=== PATIENT | male | born 1990 | race Caucasian/White ===

== ENCOUNTER 2016-11-20 16:13 | Emergency (ER) | payer OTHER ==
[~2016-11-20] VITALS: Ht 180.3 cm; Wt 72.6 kg
[2016-11-20 16:13] VITALS: BP 110/67
--- NOTE | 2016-11-20 17:25 | ED.ADGEN ---
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 Patient states he was at work and an made through milk-like substance on his face which was possibly mixed with urine or known nonbloody body fluid. The exposure occurred 2 hours or to ED arrival. Patient immediately washed his face and eyes with soap and water. Denies any contact with body other than face and eyes. Patient is here as per protocol for post exposure evaluation and testing. Review of Systems Review of Systems ROS as per HPI. Allergies Allergies Allergies Coded Allergies Type Severity Reaction Last Updated Verified No Known Drug Allergies 11/20/16 No Physical Exam Physical Exam Constitutional: Well developed, well nourished, no acute distress, non-toxic appearance. HENT: Normocephalic, atraumatic, bilateral external ears normal, oropharynx moist, no oral exudates, nose normal. Eyes: PERRLA, EOMI, conjunctiva normal. Neck: Normal range of motion, no tenderness. Cardiovascular:Heart rate regular rhythm, no murmur. Lungs & Thorax: Bilateral breath sounds clear to auscultation. Abdomen: Bowel sounds normal, soft, no tenderness. Skin: Warm, dry. Back: No tenderness, no CVA tenderness. Extremities: No tenderness. Neurologic: Alert and oriented X 3, normal motor function, normal sensory function, no focal deficits noted. Psychologic: Affect normal, judgement normal, mood normal. EKG EKG [] Radiology/Procedures Radiology/Procedures [] Course & Med Decision Making Course & Med Decision Making Pertinent Labs and Imaging studies reviewed. (See chart for details) [Occupational body fluid exposure. Patient encouraged encouraged to complete decontamination and to shower after returning home. Baseline HIV and hepatitis testing ordered. Patient to follow up with work comp physician results and further testing as needed. Final Impression Final Impression [1. Body fluid exposure] Problems: Dragon Disclaimer Dragon Disclaimer This electronic medical record was generated, in whole or in part, using a voice recognition dictation system. JEFF GALLAGHER DO November 20, 2016 17:25
[2016-11-21 12:13] LABS: HCV ANTIBODY <0.1 s/co ratio (0.0-0.9); HEP A IGM ABDY Negative (Negative)
== END 2016-11-20 17:47 | disposition home or self-care (01) ==
LOC: ER 16:13
DX: Z77.21 Contact with and (suspected) exposure to potentially hazardous body fluids (principal)
CPT/HCPCS: 36415; 80074; 86703; 99284